=== PATIENT | female | born 1955 | race Caucasian/White ===

== ENCOUNTER 2019-02-16 13:33 | Emergency (ER) | payer OTHER ==
[~2019-02-16] VITALS: Ht 152.4 cm; Wt 68.0 kg
[2019-02-16 13:38] VITALS: BP 124/74
[2019-02-16] MEDS ORDERED: NITROGLYCERIN 2% 1 GM PKT TP ONE (13:40)
[2019-02-16] MEDS ORDERED: ASPIRIN 325 MG TAB PO ONE (13:40)
--- NOTE | 2019-02-16 13:43 | NUR ---
Patient ambulated to bed 2 with family. RN evaluating patient at bedside.
--- NOTE | 2019-02-16 14:11 | NUR ---
Dr. Saeed is evaluating the patient at bedside.
--- NOTE | 2019-02-16 14:25 | NUR ---
Patient transferred to bed 1 for further care. RN re-evaluating patient.
--- NOTE | 2019-02-16 14:25 | NUR ---
ACCOMPANIED BY C/O UNPROVOKED SUBSTERNAL NON RADIATING PRESSURE TYPE PAIN LASTING MINUTES PER PT---SELF LIMITING NOTED ANKLES, LOWER TIB/FIB AREA PITTING +1 EDEMA PT DENIES N/V , DENIES COUGH, OR RECENT URI SYMPTOMS DENIES SOB NOW WITH FULL CLEAR SPEECH, NO ACCESSORY MUSCLE USE NOTED
--- NOTE | 2019-02-16 14:25 | NUR ---
BLOOD COLLECTED AT BESIDE AND HANDED TO [facility]
[2019-02-16 14:41] LABS: EOSINOPHILS % (AUTO) 0.9 % (0.0-4.0); HEMATOCRIT 38.8 % (36-48); HEMOGLOBIN 12.5 g/dL (12.0-16.0); LYMPHOCYTES # (AUTO) 0.5 K/uL (2.5-16.5); LYMPHOCYTES % (AUTO) 29.9 % (20.5-51.1); MEAN CORPUSCULAR HEMOGLOBIN 27 pg (27-31); MEAN CORPUSCULAR HGB CONC 32 g/dL (33-37); MEAN CORPUSCULAR VOLUME 83.2 fL (80-94); MONOCYTES # (AUTO) 0.1 K/uL (0.8-1.0); MONOCYTES % (AUTO) 6.9 % (1.7-9.3); NEUTROPHILS % (AUTO) 61.3 % (42.2-75.2); PLATELET COUNT (AUTO) 246 K/uL (140-450); RED BLOOD CELL COUNT(AUTO) 4.66 MIL/uL (4.20-5.40); RED CELL DISTRIBUTION WIDTH 13.6 % (11.6-13.7)
[2019-02-16 14:46] LABS: WHITE BLOOD COUNT (AUTO) 1.6 K/uL (4.8-10.8)
[2019-02-16 14:57] LABS: CARBON DIOXIDE 26.7 mmol/L (21-32); CREATININE 0.8 mg/dL (0.6-1.3); POTASSIUM 3.7 mmol/L (3.5-5.1)
[2019-02-16 15:02] LABS: PROTHROMBIN TIME 9.5 secs (10.8-13.4)
[2019-02-16 15:03] LABS: TOTAL BILIRUBIN 0.6 mg/dL (0.0-1.0)
[2019-02-16 15:45] LABS: C-REACTIVE PROTEIN QUANT < 0.2 mg/dL (0.0-0.9)
[2019-02-16 16:55] VITALS: BP 115/73
--- NOTE | 2019-02-16 16:56 | NUR ---
Patient discharged with v/s stable. Written and verbal after care instructions given and explained. Patient alert, oriented and verbalized understanding of instructions. Ambulatory with steady gait. All questions addressed prior to discharge. ID band removed. Patient advised to follow up with PMD. Rx of ATIVAN/NTG given. Patient educated on indication of medication including possible reaction and side effects. Opportunity to ask questions provided and answered.
== END 2019-02-16 16:56 | disposition home or self-care (01) ==
LOC: MED 13:33
DX: R07.2 Precordial pain (principal); D72.819 Decreased white blood cell count, unspecified; R94.31 Abnormal electrocardiogram [ECG] [EKG]; I10 Essential (primary) hypertension
CPT/HCPCS: 36415; 71045; 80053; 81002; 83735; 83880; 84484; 85025; 85379; 85610; 85730; 86140; 93005; 99284; Q0092